=== PATIENT | female | born 1980 | race Caucasian/White ===

== ENCOUNTER 2018-10-26 08:06 | Outpatient (CLI) | payer OTHER ==
[2018-10-26 13:15] LABS: THYROID STIMULATING HORMONE 1.25 uIU/mL (0.34-5.60)
[2018-10-26 13:17] LABS: FREE T4 (FREE THYROXINE) 0.91 ng/dL (0.58-1.64)
[2018-10-26 13:20] LABS: ALBUMIN 4.3 g/dL (3.2-5.5); ALBUMIN/GLOBULIN RATIO 1.4 (1.0-2.2); ALKALINE PHOSPHATASE 57 IU/L (42-121); ALT ALANINE AMINOTRANSFERASE 17 IU/L (10-60); AST ASPARTATE AMINOTRANSFERASE 18 IU/L (10-42); BILIRUBIN,TOTAL 0.7 mg/dL (0.2-1.0); BUN - BLOOD UREA NITROGEN 12 mg/dL (6-20); CALCIUM 9.1 mg/dL (8.5-10.3); CARBON DIOXIDE - CO2 24 mmol/L (21-32); CHLORIDE 104 mmol/L (101-111); CHOL/HDL RATIO 3.9 (<4.4); CHOLESTEROL 191 mg/dL; CREATININE 0.8 mg/dL (0.4-1.0); CRP HIGH SENSITIVITY 1.1 mg/L; GFR - MDRD 81 (>89); GLUCOSE 93 mg/dL (70-100); HDL CHOLESTEROL 49 mg/dL; LDL CHOLESTEROL,CALCULATED 130 mg/dL; LDL/HDL RATIO 2.7 (<4.4); SODIUM 136 mmol/L (135-145); TOTAL PROTEIN 7.4 g/dL (6.7-8.2); VLDL CHOLESTEROL 12 mg/dL
[2018-10-26 13:23] LABS: HB2 TOTAL 14.3 g/dL; HEMOGLOBIN A1C 0.48 g/dL; HEMOGLOBIN A1C % 5.2 % (4.6-6.2)
== END 2018-10-26 23:59 | disposition home or self-care (01) ==
LOC: LAB.N 08:06
PROVIDERS: ATTEND Naturopath
DX: Z00.00 Encounter for general adult medical examination without abnormal findings (principal); R53.83 Other fatigue
CPT/HCPCS: 36415; 80053; 80061; 81599; 82533; 83036; 83090; 83525; 83615; 83721; 84439; 84443; 84481; 84482; 85025; 85651; 86141; 86376; 86800

== ENCOUNTER 2019-02-07 07:51 | Outpatient (CLI) | payer OTHER ==
--- NOTE | 2019-02-08 03:30 | XRAY Report ---
Reason: PERSISTANT DYSURIA, POST UTI TREATMENT Procedure Date: 02/07/2019 Accession Number: [id number] / [id number] Procedure: XR - Abdomen 1 View X-Ray CPT Code: 00713 FULL RESULT: EXAM: ABDOMEN RADIOGRAPHY EXAM DATE: 02/07/2019 08:02 AM. CLINICAL HISTORY: PERSISTANT DYSURIA, POST UTI TREATMENT. COMPARISON: None. TECHNIQUE: 1 view. FINDINGS: Bowel Gas Pattern: Within normal limits. No dilated loops. Other: Multiple small calcifications overlying the renal shadows, measuring 2-4 mm in diameter, suspicious for nephrolithiasis. IMPRESSION: Multiple small calcifications overlying both renal shadows, suspicious for nephrolithiasis, measuring 2-4 mm. RADIA
== END 2019-02-07 07:52 | disposition home or self-care (01) ==
LOC: DI 07:51
PROVIDERS: ATTEND Naturopath
DX: N28.89 Other specified disorders of kidney and ureter (principal)
CPT/HCPCS: 74018

== ENCOUNTER 2020-02-26 08:00 | Outpatient (CLI) | payer OTHER ==
[2020-02-26 18:19] LABS: BASOPHILS # (AUTO) 0.1 10^3/uL (0.0-0.1); BASOPHILS % (AUTO) 0.5 %; EOSINOPHILS # (AUTO) 0.1 10^3/uL (0.0-0.7); EOSINOPHILS % (AUTO) 0.8 %; HGB - HEMOGLOBIN 13.8 g/dL (12.0-16.0); LYMPHOCYTES # (AUTO) 3.2 10^3/uL (1.5-3.5); LYMPHOCYTES % (AUTO) 29.8 %; MEAN CORPUSCULAR HEMOGLOBIN 29.5 pg (27.0-31.0); MEAN CORPUSCULAR HGB CONC 31.7 g/dL (32.0-36.0); MEAN CORPUSCULAR VOLUME 93.2 fL (81.0-99.0); MEAN PLATELET VOLUME 10.4 fL (7.9-10.8); MONOCYTES # (AUTO) 0.6 10^3/uL (0.0-1.0); MONOCYTES % (AUTO) 5.9 %; NEUTROPHILS # (AUTO) 6.7 10^3/uL (1.5-6.6); NEUTROPHILS % (AUTO) 62.7 %; PLT - PLATELET COUNT 434 10^3/uL (130-450); RED BLOOD COUNT 4.68 10^6/uL (4.20-5.40); RED CELL DISTRIBUTION WIDTH 13.3 % (12.0-15.0); WHITE BLOOD COUNT 10.6 x10^3/uL (4.8-10.8)
[2020-02-26 18:30] LABS: ALBUMIN 4.9 g/dL (3.2-5.5); ALBUMIN/GLOBULIN RATIO 1.5 (1.0-2.2); BILIRUBIN,TOTAL 0.6 mg/dL (0.2-1.0); CALCIUM 10.2 mg/dL (8.5-10.3); CREATININE 0.8 mg/dL (0.4-1.0); TOTAL PROTEIN 8.2 g/dL (6.7-8.2)
[2020-02-26 18:39] LABS: BILIRUBIN,URINE NEGATIVE (NEGATIVE); GLUCOSE, URINE (UA) NEGATIVE (NEGATIVE); KETONES,URINE (UA) NEGATIVE (NEGATIVE); LEUKOCYTE ESTERASE, URINE NEGATIVE (NEGATIVE); NITRITE,URINE NEGATIVE (NEGATIVE); OCCULT BLOOD,URINE SMALL (NEGATIVE); PH,URINE 7.5 PH (5.0-7.5); PROTEIN,URINE NEGATIVE (NEGATIVE); UROBILINOGEN,URINE 0.2 (NORMAL) E.U./dL (NORMAL)
[2020-02-26 18:45] LABS: CLARITY,URINE HAZY (CLEAR)
[2020-02-26 19:26] LABS: AMORPHOUS SEDIMENT,UR Few /LPF; BACTERIA,URINE None Seen /HPF (None Seen); SQUAMOUS EPITHELIAL CELL,UR FEW Squamous (<= Few)
== END 2020-02-26 23:59 | disposition home or self-care (01) ==
LOC: LAB.WCP 08:00
PROVIDERS: ATTEND Family Medicine
DX: N30.90 Cystitis, unspecified without hematuria (principal); N20.0 Calculus of kidney; B34.9 Viral infection, unspecified
CPT/HCPCS: 36415; 80053; 81001; 81599; 82330; 85025; 86769

== ENCOUNTER 2020-03-22 14:21 | Outpatient (CLI) | payer OTHER ==
--- NOTE | 2020-03-22 17:05 | Ultrasound Report ---
PROCEDURE: Retroperitoneal INDICATIONS: RECURRENT CYSTITIS,RENAL CALCULUS TECHNIQUE: Real-time scanning was performed of the retroperitoneal organs, with image documentation. COMPARISON: Ultrasound pelvis 03/22/2020 FINDINGS: Kidneys: Kidneys are normal in size. Right kidney measures 10.4 cm long; left kidney measures 11.0 cm long. Right renal cortical thickness is 1.3 cm; left renal cortical thickness is 1.7 cm. No rupali d masses or nephrolithiasis. There is a minimal prominence of the right renal collecting system part icularly within the pelvis. Bladder: Prevoid volume 81 cc. Postvoid residual 22 cc. Bilateral ureteral jets are identified. No bl adder masses are identified. IMPRESSION: 1. Minimal prominence of the right renal collecting system particularly within the pelvis. No visuali zed obstruction. No visualized stones. Reviewed by: Lucina Faustin MD on 03/22/2020 5:03 PM PDT Approved by: Lucina Faustin MD on 03/22/2020 5:03 PM PDT Station ID: [id number]
--- NOTE | 2020-03-22 17:07 | Ultrasound Report ---
PROCEDURE: Pelvic w/Transvaginal INDICATIONS: RECURRENT CYSTITIS,RENAL CALCULUS TECHNIQUE: Real-time scanning was performed of the pelvic organs, with image documentation. Additional endovagi nal scanning was necessary due to incomplete visualization of the adnexal and endometrial structures by transabdominal scanning. COMPARISON: None. FINDINGS: Transabdominal scanning: Limited scanning through the kidneys shows no hydronephrosis. No pathologi c free abdominal or pelvic fluid. Endovaginal scanning: Uterus: Uterus is normal in size at 7.9 x 3.8 x 5.4 cm. Uterus has a septated appearance. The endome trium measures 5 mm and 6 mm within the right and left sides respectively, in combined thickness. Ovaries: Right ovary measures 2.1 x 2.4 x 3.6 cm, volume 18.3 cc. Follicles are noted. Left ovary me asures 3.8 x 1.7 x 2.8 cm, volume 9 cc. Follicles are noted. IMPRESSION: 1. Septate appearance of the uterus. No prior exams are available for comparison. Reviewed by: Lucina Faustin MD on 03/22/2020 5:05 PM PDT Approved by: Lucina Faustin MD on 03/22/2020 5:05 PM PDT Station ID: [id number]
== END 2020-03-22 14:22 | disposition home or self-care (01) ==
LOC: DI 14:21
PROVIDERS: ATTEND Family Medicine
DX: N30.90 Cystitis, unspecified without hematuria (principal); N20.0 Calculus of kidney; Q51.20 Other doubling of uterus, unspecified
CPT/HCPCS: 76770; 76830; 76856

== ENCOUNTER 2021-02-10 08:00 | Outpatient (CLI) | payer OTHER | END 2021-02-10 23:59 | disposition home or self-care (01) | LOC: LAB.N 08:00 | PROVIDERS: ATTEND Nurse Practitioner | DX: R07.0 Pain in throat (principal); Z20.822 Contact with and (suspected) exposure to COVID-19 | CPT/HCPCS: 87070 ==

== ENCOUNTER 2021-02-15 08:00 | Outpatient (CLI) | payer OTHER | END 2021-02-15 23:59 | disposition home or self-care (01) | LOC: LAB.N 08:00 | PROVIDERS: ATTEND Nurse Practitioner | DX: R07.0 Pain in throat (principal); Z20.822 Contact with and (suspected) exposure to COVID-19 | CPT/HCPCS: 87070 ==

== ENCOUNTER 2021-02-27 13:26 | Outpatient (CLI) | payer OTHER | END 2021-02-27 13:27 | disposition home or self-care (01) | LOC: CAM 13:26 | PROVIDERS: ATTEND Hospitalist | DX: G89.4 Chronic pain syndrome (principal) | CPT/HCPCS: 97810; 97811 ==

== ENCOUNTER 2021-03-06 15:42 | Outpatient (CLI) | payer OTHER | END 2021-03-06 15:43 | disposition home or self-care (01) | LOC: CAM 15:42 | PROVIDERS: ATTEND Hospitalist | DX: G89.4 Chronic pain syndrome (principal) | CPT/HCPCS: 97810; 97811 ==

== ENCOUNTER 2021-03-13 14:14 | Outpatient (CLI) | payer OTHER | END 2021-03-13 14:15 | disposition home or self-care (01) | LOC: CAM 14:14 | PROVIDERS: ATTEND Hospitalist | DX: G89.4 Chronic pain syndrome (principal) | CPT/HCPCS: 97810; 97811 ==

== ENCOUNTER 2021-03-27 13:09 | Outpatient (CLI) | payer OTHER | END 2021-03-27 13:10 | disposition home or self-care (01) | LOC: CAM 13:09 | PROVIDERS: ATTEND Hospitalist | DX: G89.4 Chronic pain syndrome (principal) | CPT/HCPCS: 97810; 97811 ==

== ENCOUNTER 2021-04-03 11:53 | Outpatient (CLI) | payer OTHER | END 2021-04-03 11:54 | disposition home or self-care (01) | LOC: CAM 11:53 | PROVIDERS: ATTEND Hospitalist | DX: G89.4 Chronic pain syndrome (principal) | CPT/HCPCS: 97810; 97811 ==

== ENCOUNTER 2021-04-10 13:07 | Outpatient (CLI) | payer OTHER | END 2021-04-10 13:08 | disposition home or self-care (01) | LOC: CAM 13:07 | PROVIDERS: ATTEND Hospitalist | DX: G89.4 Chronic pain syndrome (principal) | CPT/HCPCS: 97810; 97811 ==

== ENCOUNTER 2021-04-21 07:05 | Outpatient (CLI) | payer OTHER | END 2021-04-21 23:59 | disposition home or self-care (01) | LOC: LAB.N 07:05 | PROVIDERS: ATTEND Physician Assistant Medical | DX: R39.9 Unspecified symptoms and signs involving the genitourinary system (principal) | CPT/HCPCS: 87086; 87181 ==

== ENCOUNTER 2021-04-28 13:14 | Outpatient (CLI) | payer OTHER | END 2021-04-28 13:15 | disposition home or self-care (01) | LOC: CAM 13:14 | PROVIDERS: ATTEND Hospitalist | DX: G89.4 Chronic pain syndrome (principal) | CPT/HCPCS: 97810; 97811 ==

== ENCOUNTER 2021-07-14 13:04 | Outpatient (CLI) | payer OTHER | END 2021-07-14 13:05 | disposition home or self-care (01) | LOC: CAM 13:04 | PROVIDERS: ATTEND Hospitalist | DX: G89.4 Chronic pain syndrome (principal) | CPT/HCPCS: 97810; 97811 ==